=== PATIENT | male | born 1980 | race Caucasian/White ===

== ENCOUNTER 2018-05-01 13:34 | Emergency (ER) | payer SELFPAY ==
[2018-05-01] MEDS ORDERED: Bacitracin Oint 1 GM U/D Packet TOP ONE (14:01)
--- NOTE | 2018-05-01 14:01 | EDM.PDOC ---
ED HPI GENERAL MEDICAL PROBLEM - General Chief Complaint: Upper Extremity Injury/Pain Stated Complaint: HOLE IN TIP OF LEFT THUMB Time Seen by Provider: 05/01/18 13:50 Source of Information: Reports: Patient History Limitations: Reports: No Limitations - History of Present Illness INITIAL COMMENTS - FREE TEXT/NARRATIVE: This 37 yo male patient reports to the ED with a hole in his left thumb. The patient reports that the injury happened about 2 weeks ago and that he has been in [facility] since the time of the injury. The patient reports they had been cleaning and dressing the wound while he was in halfway. The patient reports that he has not been seen by a provider for this injury. The patient reports he has noticed some increased redness to his thumb. The patient reports that he does not have a primary care facility and does not have any insurance. Duration: Week(s):, Constant Location: Reports: Upper Extremity, Left Quality: Reports: Ache, Dull Severity: Moderate Improves with: Reports: None Worsens with: Reports: None Associated Symptoms: Reports: No Other Symptoms Treatments SERVICE ASSOCIATE: Reports: Dressing(s) - Related Data Allergies Allergy/AdvReac Type Severity Reaction Status Date / Time No Known Allergies Allergy Verified 05/01/18 13:42 Home Meds: Home Meds . [No Known Home Meds] 05/01/18 [History] Past Medical History - Past Health History Medical/Surgical History: Denies Medical/Surgical History Social & Family History - Family History Family Medical History: Noncontributory - Tobacco Use Smoking Status *Q: Current Every Day Smoker Years of Tobacco use: 12 Packs/Tins Daily: 1 - Caffeine Use Caffeine Use: Reports: Coffee, Energy Drinks, Soda, Tea - Recreational Drug Use Recreational Drug Use: No Review of Systems - Review of Systems Review Of Systems: ROS reveals no pertinent complaints other than HPI. ED EXAM, GENERAL - Physical Exam Exam: See Below Exam Limited By: No Limitations General Appearance: Alert, WD/WN, No Apparent Distress Eye Exam: Bilateral Eye: EOMI, Normal Inspection, PERRL Ears: Normal External Exam, Normal Canal, Hearing Grossly Normal, Normal TMs Nose: Normal Inspection, Normal Mucosa, No Blood Throat/Mouth: Normal Inspection, Normal Lips, Normal Teeth, Normal Gums, Normal Oropharynx, Normal Voice, No Airway Compromise Head: Atraumatic, Normocephalic Neck: Normal Inspection, Supple, Non-Tender, Full Range of Motion Respiratory/Chest: No Respiratory Distress, Lungs Clear, Normal Breath Sounds, No Accessory Muscle Use, Chest Non-Tender Cardiovascular: Normal Peripheral Pulses, Regular Rate, Rhythm, No Edema, No Gallop, No JVD, No Murmur, No Rub GI/Abdominal: Normal Bowel Sounds, Soft, Non-Tender, No Organomegaly, No Distention, No Abnormal Bruit, No Mass (Male) Exam: Deferred Rectal (Males) Exam: Deferred Back Exam: Normal Inspection, Full Range of Motion, NT Extremities: Other (The patient has an open wound to his left thumb due to an injury that occurred about 2 weeks ago. There is redness and swelling to the thumb, but no open areas are observed in the wound. The patient reports he has had some whitish to greenish discharge from the area. The patient reports that he is currently not on any medications. ) Neurological: Alert, Oriented, CN II-XII Intact, Normal Cognition, Normal Gait, Normal Reflexes, No Motor/Sensory Deficits Psychiatric: Normal Affect, Normal Mood Skin Exam: Other (see above) Lymphatic: No Adenopathy Departure - Departure Time of Disposition: 14:02 Disposition: Home, Self-Care 01 Condition: Fair Clinical Impression: Cellulitis of left thumb - Discharge Information *PRESCRIPTION DRUG MONITORING PROGRAM REVIEWED*: Not Applicable *COPY OF PRESCRIPTION DRUG MONITORING REPORT IN PATIENT PEPE: Not Applicable Instructions: Cellulitis, Adult, [id number] Care Plan Goals: The patient was advised of the examination results during the visit. The patient was discharged with a script for Keflex (500 mg) #40 to take 1 by mouth 4 times per day for 10 days. The patient should follow-up with a primary care provider in 1 week for continued evaluation and further management. The patient should keep the area clean, covered and dry. If the patient has any additional symptoms or concerns, the patient should visit his primary care facility or return to the emergency department.
== END 2018-05-01 14:20 | disposition home or self-care (01) ==
LOC: DL.ED 13:34
DX: L03.012 Cellulitis of left finger (principal); F17.210 Nicotine dependence, cigarettes, uncomplicated
CPT/HCPCS: 99282

== ENCOUNTER 2018-05-13 16:47 | Emergency (ER) | payer MEDICAID ==
[2018-05-13] MEDS ORDERED: Acetaminophen 325 MG Tab PO ONE (18:45)
--- NOTE | 2018-05-13 19:26 | EDM.PDOC ---
Scribed by Dania Saxena 05/13/18 1926 for Zachary Claudio PA ED HPI GENERAL MEDICAL PROBLEM - General Chief Complaint: Headache Stated Complaint: FELL/HEAD PAIN [id number] Time Seen by Provider: 05/13/18 17:35 Source of Information: Reports: Patient, RN, RN Notes Reviewed History Limitations: Reports: No Limitations - History of Present Illness INITIAL COMMENTS - FREE TEXT/NARRATIVE: Patient is a 37-year-old male who fell off a balcony 2 days ago approximately 13 feet. He has a contusion posterior head, abrasion left posterior ribs and contusion below right eye. He had possible loss of consciousness. Onset Date: 05/11/18 Duration: Getting Worse Location: Reports: Head Quality: Reports: Ache Severity: Moderate Improves with: Reports: None Worsens with: Reports: None Associated Symptoms: Reports: No Other Symptoms Posterior Head Pain Score (Numeric/FACES): 2 - Related Data Allergies Allergy/AdvReac Type Severity Reaction Status Date / Time No Known Allergies Allergy Verified 05/01/18 13:42 Home Meds: Home Meds . [No Known Home Meds] 05/01/18 [History] Past Medical History - Past Health History Medical/Surgical History: Denies Medical/Surgical History Social & Family History - Family History Family Medical History: Noncontributory - Tobacco Use Smoking Status *Q: Current Every Day Smoker Years of Tobacco use: 20 Packs/Tins Daily: 0.5 - Caffeine Use Caffeine Use: Reports: Coffee, Energy Drinks, Soda, Tea - Alcohol Use Days Per Week of Alcohol Use: 2 Number of Drinks Per Day: 2 Total Drinks Per Week: 4 - Recreational Drug Use Recreational Drug Use: Yes Recreational Drug Type: Reports: Methamphetamine Recreational Drug Use Frequency: Not Used In Over 1 Month ED ROS GENERAL - Review of Systems Review Of Systems: ROS reveals no pertinent complaints other than HPI. ED EXAM, HEAD INJURY - Physical Exam Exam: See Below Exam Limited By: No Limitations General Appearance: Alert, WD/WN, No Apparent Distress Head: Atraumatic, Normocephalic Eyes: Bilateral Eye: Other (Right black eye (contusion)) Ears: Normal External Exam, Normal Canal, Hearing Grossly Normal, Normal TMs Nose: Other (bridge of nose tender) Throat/Mouth: Normal Inspection, Normal Lips, Normal Teeth, Normal Gums, Normal Oropharynx, Normal Voice, No Airway Compromise Neck: Other (contusion posterior neck) Respiratory: Other (left posterior rib abrasions) Cardiovascular: Normal Peripheral Pulses, Regular Rate, Rhythm, No Edema, No Gallop, No JVD, No Murmur, No Rub GI/Abdominal Exam: Normal Bowel Sounds, Soft, Non-Tender, No Organomegaly, No Distention, No Abnormal Bruit, No Mass (Male) Exam: Deferred Rectal (Males) Exam: Deferred Back Exam: Full Range of Motion, Normal Inspection, NT Extremities: Other (generalized stiffness) Neurologic: check viewer II-XII nml As Tested, No Motor/Sensory Deficits, Alert, Normal Mood/Affect, Oriented x 3 Skin: Normal Color, Warm/Dry Course - Vital Signs Last Recorded V/S: Last Vital Signs Temp 36.6 C 05/13/18 16:59 Pulse 78 05/13/18 16:59 Resp 15 05/13/18 16:59 BP 130/87 05/13/18 16:59 Pulse Ox 97 05/13/18 16:59 - Orders/Labs/Meds Orders: Active Orders 24 hr Category Date Time Status Cervical Spine wo Cont [CT] Urgent Exams 05/13/18 17:41 Ordered Head wo Cont [CT] Urgent Exams 05/13/18 17:41 Ordered Max Facial Sinus wo Cont [CT] Urgent Exams 05/13/18 17:41 Taken DRUG SCREEN URINE BIORAD [URCHEM] Stat Lab 05/13/18 17:38 Ordered Labs: Laboratory Tests 05/13/18 05/13/18 Range/Units 17:38 17:38 Urine Color Yellow (YELLOW) Urine Appearance Clear (CLEAR) Urine pH 6.0 (5.0-9.0) Ur Specific [place] 1.025 (1.005-1.030) Urine Protein 30 H (NEGATIVE) Urine Glucose (UA) Negative (NEGATIVE) Urine Ketones Negative (NEGATIVE) Urine Occult Blood Negative (NEGATIVE) Urine Nitrite Negative (NEGATIVE) Urine Bilirubin Negative (NEGATIVE) Urine Urobilinogen 0.2 (0.2-1.0) mg/dL Ur Leukocyte Esterase Negative (NEGATIVE) Urine RBC 0-5 /HPF Urine WBC 10-20 H (0-5/HPF) /HPF Ur Epithelial Cells Moderate H /HPF Urine Bacteria Few (0-FEW/HPF) /HPF Hyaline Casts Few H /LPF Urine Mucus Few H /LPF Urine Opiates Screen Negative (NEGATIVE) Ur Oxycodone Screen Negative (NEGATIVE) Urine Methadone Screen Negative (NEGATIVE) Ur Barbiturates Screen Negative (NEGATIVE) U Tricyclic Antidepress Negative (NEGATIVE) Ur Phencyclidine Scrn Negative (NEGATIVE) Ur Amphetamine Screen Negative (NEGATIVE) U Methamphetamines Scrn Negative (NEGATIVE) Urine MDMA Screen Negative (NEGATIVE) U Benzodiazepines Scrn Negative (NEGATIVE) Urine Cocaine Screen Negative (NEGATIVE) U Marijuana (THC) Screen Negative (NEGATIVE) Meds: Medications Discontinued Medications Generic Name Dose Route Start Last Admin Trade Name Rehana PRN Reason Stop Dose Admin Acetaminophen 650 mg 05/13/18 18:45 05/13/18 18:52 Tylenol PO 05/13/18 18:46 650 mg NOW ONE Administration - Re-Assessments/Exams Free Text/Narrative Re-Assessment/Exam: 05/13/18 19:[address] Montemayor ([place], Neuro[facility]). Dr. Montemayor advised that the patient should be placed in a C-collar for the night and have an MRI tomorrow morning. Departure - Departure Time of Disposition: 19:20 Disposition: Home, Self-Care 01 Condition: Fair Clinical Impression: Cervical spine instability Skull fracture Qualifiers: Encounter type: initial encounter Skull bone/location: occipital bone Fracture type: closed Occipital fracture type: unspecified fracture of occiput Laterality : unspecified laterality Qualified Code(s): S02.119A - Unspecified fracture of occiput, initial encounter for closed fracture - Discharge Information *PRESCRIPTION DRUG MONITORING PROGRAM REVIEWED*: Not Applicable *COPY OF PRESCRIPTION DRUG MONITORING REPORT IN PATIENT PEPE: Not Applicable Instructions: Skull Fracture, Adult, Cervical Sprain Forms: ED Department Discharge Care Plan Goals: The patient and friend were advised of the examination, lab and CT results during the visit. The patient was placed in a cervical collar to stabilize his neck. The patient will be called in the morning once we can establish a time for an MRI. The patient should keep the collar on until after the MRI results. If the patient has any additional symptoms or concerns, the patient should follow-up with his primary care facility or return to the emergency department. - My Orders Last 24 Hours: My Active Orders 05/13/18 17:38 DRUG SCREEN URINE BIORAD [URCHEM] Stat 05/13/18 17:41 Cervical Spine wo Cont [CT] Urgent Head wo Cont [CT] Urgent Max Facial Sinus wo Cont [CT] Urgent - Assessment/Plan Last 24 Hours: My Active Orders 05/13/18 17:38 DRUG SCREEN URINE BIORAD [URCHEM] Stat 05/13/18 17:41 Cervical Spine wo Cont [CT] Urgent Head wo Cont [CT] Urgent Max Facial Sinus wo Cont [CT] Urgent I have read and agree with the documentation that has been completed regarding this visit. By signing this record, I attest that the documentation was completed in my physical presence and is an accurate record of the encounter.
== END 2018-05-13 19:46 | disposition home or self-care (01) ==
LOC: DL.ED 16:47
DX: S02.119A Unspecified fracture of occiput, initial encounter for closed fracture (principal); M53.2X2 Spinal instabilities, cervical region; F17.210 Nicotine dependence, cigarettes, uncomplicated; W17.89XA Other fall from one level to another, initial encounter
CPT/HCPCS: 70450; 70486; 72125; 80305; 81001; 99284; A9270

== ENCOUNTER 2018-12-21 21:52 | Emergency (ER) | payer MEDICAID ==
[2018-12-21] MEDS ORDERED: Cephalexin 500 MG Cap PO ONE ×2 (21:53→22:30)
[2018-12-21] MEDS ORDERED: Bacitracin Oint 1 GM U/D Packet TOP ONE (22:30)
[2018-12-21] MEDS ORDERED: Cephalexin 500 MG Cap ONE (22:36)
--- NOTE | 2018-12-21 22:38 | EDM.PDOC ---
ED HPI GENERAL MEDICAL PROBLEM - General Chief Complaint: Skin Complaint Stated Complaint: INFECTED LEFT SOCIAL AND RT INDEX Time Seen by Provider: 12/21/18 22:25 Source of Information: Reports: Patient History Limitations: Reports: Language Barrier - History of Present Illness INITIAL COMMENTS - FREE TEXT/NARRATIVE: This 38 yo male patient reports to the ED with a possible infection to his right middle finger as well to his left 2nd and 3rd fingers. The wound to his right middle finger is what the patient is most concerned about. The patient does not know what happened initially. The patient though he either got battery acid on his hand or got something in his hand. The patient has not been seen in the clinic. Duration: Day(s):, Constant, Getting Worse Location: Reports: Upper Extremity, Left, Upper Extremity, Right Quality: Reports: Ache, Dull Severity: Mild Improves with: Reports: None Worsens with: Reports: None Context: Reports: Other Associated Symptoms: Reports: No Other Symptoms Bilateral Hand Pain Score (Numeric/FACES): 6 - Related Data Allergies Allergy/AdvReac Type Severity Reaction Status Date / Time No Known Allergies Allergy Verified 12/21/18 22:05 Home Meds: Home Meds . [No Known Home Meds] 05/01/18 [History] Past Medical History - Past Health History Medical/Surgical History: Denies Medical/Surgical History Dermatologic History: Reports: Cellulitis Social & Family History - Family History Family Medical History: Noncontributory - Tobacco Use Smoking Status *Q: Current Every Day Smoker Years of Tobacco use: 25 Packs/Tins Daily: 1 - Caffeine Use Caffeine Use: Reports: Soda - Alcohol Use Days Per Week of Alcohol Use: 2 Number of Drinks Per Day: 5 Total Drinks Per Week: 10 - Recreational Drug Use Recreational Drug Use: Yes Recreational Drug Type: Reports: Marijuana/Hashish ED ROS GENERAL - Review of Systems Review Of Systems: ROS reveals no pertinent complaints other than HPI. ED EXAM, SKIN/RASH Exam: See Below Exam Limited By: No Limitations General Appearance: Alert, WD/WN, Mild Distress Eye Exam: Bilateral Eye: EOMI, Normal Inspection, PERRL Ears: Normal External Exam, Normal Canal, Hearing Grossly Normal, Normal TMs Nose: Normal Inspection, Normal Mucosa, No Blood Throat/Mouth: Normal Inspection, Normal Lips, Normal Teeth, Normal Gums, Normal Oropharynx, Normal Voice, No Airway Compromise Head: Atraumatic, Normocephalic Respiratory/Chest: No Respiratory Distress, Lungs Clear, Normal Breath Sounds, No Accessory Muscle Use, Chest Non-Tender Cardiovascular: Normal Peripheral Pulses, Regular Rate, Rhythm, No Edema, No Gallop, No JVD, No Murmur, No Rub GI/Abdominal: Normal Bowel Sounds, Soft, Non-Tender, No Organomegaly, No Distention, No Abnormal Bruit, No Mass (Male) Exam: Deferred Rectal (Males) Exam: Deferred Back Exam: Normal Inspection, Full Range of Motion, NT Extremities: Normal Range of Motion, No Pedal Edema, Normal Capillary Refill Neurological: Alert, Oriented, CN II-XII Intact, Normal Cognition, Normal Gait, Normal Reflexes, No Motor/Sensory Deficits Psychiatric: Normal Affect, Normal Mood Skin: Wound/Incision (left middle finger with erythema and mild drainage. Right 2nd and 3rd fingers have small areas that appear to have hopkins to them with no erythema or drainage. ) Location, Skin: Upper Extremity, Right, Upper Extremity, Left Associated features: Tenderness Lymphatic: No Adenopathy Course - Vital Signs Last Recorded V/S: Last Vital Signs Temp 36.3 C 12/21/18 21:59 Pulse 78 12/21/18 21:59 Resp 18 12/21/18 21:59 BP 137/86 12/21/18 21:59 Pulse Ox 98 12/21/18 21:59 - Orders/Labs/Meds Meds: Medications Discontinued Medications Generic Name Dose Route Start Last Admin Trade Name Freq PRN Reason Stop Dose Admin Bacitracin 1 dose 12/21/18 22:30 Bacitracin Oint 1 Gm TOP 12/21/18 22:31 ONETIME ONE Cephalexin 500 mg 12/21/18 22:30 Keflex PO 12/21/18 22:31 ONETIME ONE Departure - Departure Time of Disposition: 22:36 Disposition: Home, Self-Care 01 Condition: Fair Clinical Impression: Cellulitis Qualifiers: Site of cellulitis: extremity Site of cellulitis of extremity: upper extremity Laterality: unspecified laterality Qualified Code(s): L03.119 - Cellulitis of unspecified part of limb - Discharge Information *PRESCRIPTION DRUG MONITORING PROGRAM REVIEWED*: Not Applicable *COPY OF PRESCRIPTION DRUG MONITORING REPORT IN PATIENT PEPE: Not Applicable Instructions: Cellulitis, Adult, [id number] Care Plan Goals: The patient was advised of the examination results during the visit. The patient wounds were cleaned and antibiotic ointment was applied. The patient was given an oral dose of Keflex (500 mg) while in the ED. The patient was discharged with a dose of Keflex (500 mg) for the morning and a script for Keflex (500 mg) #42 to take 1 by mouth 3 times per day for 14 days. The patient was encouraged to keep the areas covered. If the patient has any additional symptoms or concerns, the patient should either return to the emergency department or visit his primary care facility.
== END 2018-12-21 22:49 | disposition home or self-care (01) ==
LOC: DL.ED 21:52
DX: L03.012 Cellulitis of left finger (principal); F17.210 Nicotine dependence, cigarettes, uncomplicated
CPT/HCPCS: 99282; A9270